=== PATIENT | female | born 1980 | race Caucasian/White ===

== ENCOUNTER 2016-12-12 16:25 | Emergency (ER) | payer OTHER ==
[~2016-12-12] VITALS: Ht 177.8 cm; Wt 81.6 kg
[2016-12-12] MEDS ORDERED: KEFLEX500 M1 PO (17:27)
--- NOTE | 2016-12-12 17:28 | ED ANKLE/FOOT INJURY COMPLAINT ---
History of Present Illness General Chief Complaint: Foot or Ankle Injury Stated Complaint: PT POSSIBLE INFECTION IN THE LEFT FOOT Source: patient Exam Limitations: no limitations Vital Signs & Intake/Output Vital Signs & Intake/Output Vital Signs Date Time Temp Pulse Resp B/P Pulse O2 O2 Flow FiO2 Ox Delivery Rate 12/12 1744 96.4 78 18 126/80 100 Room Air 12/12 1654 98 Room Air 12/12 1633 98.4 85 20 130/86 100 Room Air ED Intake and Output 12/13 0000 12/12 1200 Intake Total Output Total Balance Patient 180 lb Weight Allergies Coded Allergies: No Known Allergies (12/12/16) Reconcile Medications Cephalexin (Keflex) 500 MG CAPSULE 1 CAP PO TID INFECTION Triage Note: TRIAGE: PT TO ER C/C PAIN, SWELLING AND REDNESS TO L GREAT TOE. STATES "IT LOOKS INFECTED". STUBBED IT X 2 IN THE LAST 5 DAYS, THE SECOND TIME BEING LAST NIGHT. TAKING IBUPROFEN FOR PAIN, STATES LASTS ABOUT AN HOUR. PT WEARING BOOTS AT TRIAGE, FOOT NOT VISUALIZED. Triage Nurses Notes Reviewed? yes : No Patient currently breastfeeds: No HPI: Severe throbbing left great toe pain and swelling. Over the last week she had a small splinter in the toe which she removed and then she had 2 small trauma to the toe by stubbing it while walking barefoot however over the last 2 days it has gotten more swollen painful underneath the nail, as throbbing and severe. No fever no flulike illness. It is exquisitely tender to touch. (DANIKA ARCE) Past History Travel History Traveled to [place] past 21 day No Medical History Any Pertinent Medical History? see below for history Neurological: NONE EENT: NONE Cardiovascular: NONE Respiratory: NONE Gastrointestinal: NONE Hepatic: NONE Renal: NONE Musculoskeletal: L ARM FX Psychiatric: NONE Endocrine: NONE Blood Disorders: NONE Cancer(s): NONE LOAN ANALYST/Reproductive: NONE Surgical History Surgical History: non-contributory Psychosocial History What is your primary language Indonesian Tobacco Use: Quit >30 days ago ETOH Use: occasional use Illicit Drug Use: denies illicit drug use Family History Hx Contributory? No (DANIKA ARCE) Review of Systems Review of Systems Constitutional: Reports: see HPI. EENTM: Reports: no symptoms. Respiratory: Reports: no symptoms. Cardiovascular: Reports: no symptoms. GI: Reports: no symptoms. Genitourinary: Reports: no symptoms. Musculoskeletal: Reports: see HPI. Skin: Reports: no symptoms. Neurological/Psychological: Reports: no symptoms. Hematologic/Endocrine: Reports: no symptoms. Immunologic/Allergic: Reports: no symptoms. All Other Systems: Reviewed and Negative (DANIKA ARCE) Physical Exam Physical Exam Leg/Knee/Thigh Left: normal range of motion Comments: Well-developed well-nourished no apparent distress. HEENT: Atraumatic, extraocular motion intact Neck: Supple, no lymphadenopathy Back: Nontender Respiratory: No respiratory distress Extremities: No edema, full range of motion Neuro: Alert and oriented x3 Psych: Mood affect normal, normal memory normal judgment. Skin: Warm and dry, no rash on exposed skin Left foot, left great toe with small residual erythematous eponychia with purulence tracking underneath the great toenail encompassing nearly 100% of the toenail causing it to lift off the nailbed. It is exquisitely tender to palpation. There is no felon or infection of the skin or tissue surrounding the nail on the lateral nail folds OR of the pulp of the toe. (DANIKA ARCE) Progress Differential Diagnosis: cellulitis, septic arthritis, gout, fracture, compartmental syndrome, OSTEOMYELITIS, FOREIGN BODY Plan of Care: After verbal consent was obtained, the left great toe was cleansed with chlorhexidine and 11 blade scalpel was used to incise the skin of the nail bed underneath the nail and a transverse plane staying directly underneath the nail. A moderate amount of thin purulent foul-smelling fluid was expressed. A sterile dressing was then applied. Patient tolerated the procedure well without patient. Patient stands at this may return and she will need to take antibiotics and apply warm compresses to the area or use warm soaks. She should return to 3 days if the pain and swelling and redness has returned. She states she feels significantly better after the procedure. (DANIKA ARCE) Departure Departure Disposition: HOME OR SELF CARE Condition: Stable Clinical Impression Primary Impression: Eponychia Referrals: PATIENT HAS NO PRIMARY CARE DR (PCP/Family) Additional Instructions: Warm compresses, take antibiotics as directed. You may need to return in 2-3 days if the abscess returns to have this opened up again. Watch for signs of worsening pain, redness, swelling or any fever or flulike illness. Return with any concerns of this. Departure Forms: Customer Survey General Discharge Information Prescriptions: Current Visit Scripts Cephalexin (Keflex) 1 CAP PO TID #21 CAP (DANIKA ARCE) PA/VALVE GRINDER Co-Sign Statement Statement: ED Attending supervision documentation- [] I saw and evaluated the patient. I have also reviewed all the pertinent lab results and diagnostic results. I agree with the findings and the plan of care as documented in the PA's/VALVE GRINDER's documentation. [X] I have reviewed the ED Record and agree with the PA's/VALVE GRINDER's documentation. [] Additions or exceptions (if any) to the PAs/VALVE GRINDER's note and plan are summarized below: [] (MADDISON ANGULO,EMY)
[2016-12-12 17:44] VITALS: BP 126/80
== END 2016-12-12 17:45 ==
LOC: ERH 16:25
DX: Q84.6 Other congenital malformations of nails (principal)